=== PATIENT | male | born 1945 | race African-American/Black ===

== ENCOUNTER 2017-02-01 17:03 | Inpatient (IN) | payer MEDICARE ==
[~2017-02-01] VITALS: Ht 177.8 cm; Wt 131.8 kg
[~2017-02-01 17:03] MED LIST: ANTIVERT12.5 MG PO; CLARITIN 10 MG10 MG PO; COZAAR50 MG PO; DEPAKOTE500 MG PO; DESERYL100 MG PO; DULCOLAX5 MG PO; FEXOFENADINE H180 MG PO; FEXOFENADINE HC60 MG PO; GLUCOPHAGE500 MG PO; GUAIFENESI100 MG/5 M PO; HALDOL DECAN50 MG/ML IM; HYDROCHLOROTH12.5 M1 PO; HYZAAR 100-25 T1 TAB PO; INVEGA SUS117 MG/0.7 IM; INVEGA6 MG/BLIST PO; INVEGA9 MG/BLIST PO; LIDODERM 5 %1 PATCH TD; LINZESS145 MCG PO; MELATONIN 3 MG1 TAB PO; MILK OF MAGNESI30 ML OR; MILK OF MAGNESI30 ML PO; MIRALAX17 GM PO; MOBIC7.5 MG PO; MUCINEX600 MG PO; MYRBETRIQ25 MG PO; NORCO 5/325 TAB1 TA1 PO; NORVASC5 MG PO; PAXIL20 MG PO; REFRESH TEARS15 ML EACH EYE; REQUIP1 MG PO; RISPERDAL0.5 MG PO; RISPERDAL1 MG PO; SENNA PLUS TA1 UDTAB PO; SENOKOT-S TABLE1 TAB PO; TRIMETHOPRIM100 MG PO; TYLENOL W/CODEI1 TAB PO; VESICARE10 MG PO; VITAMIN D2000 UNIT PO
[2017-02-01] MEDS ORDERED: FUROSEMIDE20 MG PO (23:23)
[2017-02-01] MEDS ORDERED: CELEXA10 MG PO (23:24)
[2017-02-01] MEDS ORDERED: TRAZODONE HCL50 MG PO (23:24)
[2017-02-01] MEDS ORDERED: FLOMAX0.4 MG PO (23:25)
[2017-02-01] MEDS ORDERED: KLONOPIN0.5 MG PO (23:26)
[2017-02-01] MEDS ORDERED: LINZESS290 MCG (23:27)
[2017-02-02 15:13] VITALS: Ht 177.8 cm; Wt 131.8 kg
[2017-02-06] MEDS ORDERED: NYSTATIN ORAL SU5 ML PO (15:45)
[2017-02-06] MEDS ORDERED: ALBUTEROL2.5 MG/3 M INH (15:45)
[2017-02-06] MEDS ORDERED: CLEOCIN PREMIX900 MG IV (15:45)
[2017-02-06] MEDS ORDERED: NICODERM C1 PATCH .1 TRANSDERM (15:46)
[2017-02-06] MEDS ORDERED: IPRAT-ALBUT 0.5-3 ML INH (15:46)
[2017-02-06] MEDS ORDERED: TESSALON PERLE100 MG PO (15:47)
[2017-02-06] MEDS ORDERED: SINGULAIR10 MG PO (15:48)
[2017-02-06 16:38] VITALS: BP 113/83
== END 2017-02-06 21:55 | DRG 871 ==
LOC: D.ER 17:03 → D.MS 19:39
PROVIDERS: ADMIT Family Medicine Adult Medicine
PROC: 05HC33Z Insertion of Infusion Device into Left Basilic Vein, Percutaneous Approach (ICD-10-PCS; principal; 2017-02-06)
PROC: B54NZZA Ultrasonography of Left Upper Extremity Veins, Guidance (ICD-10-PCS; 2017-02-06)
DX: A41.9 Sepsis, unspecified organism (principal); J96.01 Acute respiratory failure with hypoxia; J18.9 Pneumonia, unspecified organism; J44.0 Chronic obstructive pulmonary disease with (acute) lower respiratory infection; J44.1 Chronic obstructive pulmonary disease with (acute) exacerbation; F17.203 Nicotine dependence unspecified, with withdrawal; E87.1 Hypo-osmolality and hyponatremia; J98.11 Atelectasis; I10 Essential (primary) hypertension; G25.81 Restless legs syndrome; N32.81 Overactive bladder; E83.42 Hypomagnesemia; E11.9 Type 2 diabetes mellitus without complications; Z79.84 Long term (current) use of oral hypoglycemic drugs; I11.0 Hypertensive heart disease with heart failure; I50.9 Heart failure, unspecified; F03.90 Unspecified dementia, unspecified severity, without behavioral disturbance, psychotic disturbance, mood disturbance, and anxiety; G47.33 Obstructive sleep apnea (adult) (pediatric); Z91.19 Patient's noncompliance with other medical treatment and regimen

== ENCOUNTER 2019-01-03 22:01 | Inpatient (IN) | payer MEDICARE ==
[~2019-01-03] VITALS: Ht 177.8 cm; Wt 135.2 kg
[~2019-01-03 22:01] MED LIST changes: +ALBUTEROL2.5 MG/3 M INH; +CELEXA10 MG PO; +CLEOCIN PREMIX900 MG IV; +FLOMAX0.4 MG PO; +FUROSEMIDE20 MG PO; +IPRAT-ALBUT 0.5-3 ML INH; +KLONOPIN0.5 MG PO; +LINZESS290 MCG; +NICODERM C1 PATCH .1 TRANSDERM; +NYSTATIN ORAL SU5 ML PO; +SINGULAIR10 MG PO; +TESSALON PERLE100 MG PO; +TRAZODONE HCL50 MG PO
--- NOTE | 2019-01-03 22:21 | NUR ---
URINE COLLECTED AND SENT TO LAB.
[2019-01-03 22:30] LABS: APPEARANCE HAZY (CLEAR); BILIRUBIN NEGATIVE (NEGATIVE); COLOR YELLOW (YELLOW); GLUCOSE NEGATIVE (NEGATIVE); KETONE NEGATIVE (NEGATIVE); NITRITE NEGATIVE (NEGATIVE); PROTEIN NEGATIVE (NEGATIVE); UROBILINOGEN NORMAL (NORMAL)
[2019-01-03 22:32] LABS: BACTERIA FEW /hpf (NONE SEEN); EPITHELIAL CELLS 0-5 /hpf (0-5); RED CELLS - URINE OCC /hpf (0-5); WHITE CELLS - URINE RARE /hpf (0-5)
[2019-01-03 22:32] LABS: BASOPHILS 0.3 % (0-2); EOSINOPHILS 5.6 % (0-7); HEMATOCRIT 40.6 % (42.0-54.0); HEMOGLOBIN 13.6 g/dL (13.5-17.5); IMMATURE GRANULOCYTES 0.3 % (0-5); LYMPHOCYTES 38.8 % (15-50); MCH 31.5 pg (26.0-34.0); MCHC 33.5 g/dL (31.0-37.0); MEAN PLATELET VOLUME 9.4 fL (7.4-10.4); PLATELET COUNT 153 10x3/uL (130-400); RBC 4.32 10x6/uL (4.20-6.10); RDW 13.7 % (11.5-14.5); WBC 7.7 10x3/uL (4.8-10.8)
[2019-01-03 22:44] LABS: APTT 33.2 SECONDS (22.8-39.4); INR 1.07 (0.85-1.17); PROTIME 13.4 SECONDS (11.6-15.0)
[2019-01-03 22:51] LABS: ALBUMIN 3.2 g/dL (3.4-5.0); ALKALINE PHOSPHATASE 66 U/L (46-116); ALT (SGPT) 31 U/L (10-68); BILIRUBIN - TOTAL 0.29 mg/dL (0.2-1.3); CALC OSMOLALITY 253 mosm/kg (275-300); CALCIUM 9.1 mg/dL (8.5-10.1); CHLORIDE - SERUM 89 mmol/L (98-107); CREATININE - SERUM 0.7 mg/dL (0.6-1.3); GLUCOSE 118 mg/dL (74-106); POTASSIUM - SERUM 4.4 mmol/L (3.5-5.1); PROTEIN - SERUM 7.2 g/dL (6.4-8.2); SODIUM 127 mmol/L (136-145); UREA NITROGEN 8 mg/dL (7-18); eGFR NON AFRICAN AMERICAN > 90 mL/min (90-120)
[2019-01-03 23:07] LABS: CREATINE KINASE 275 UL (21-232); LIPASE 174 U/L (73-393); MAGNESIUM - SERUM 2.2 mg/dL (1.8-2.4); PRO BNP 20 pg/mL (0-450); TROPONIN-I < 0.017 ng/mL (0.000-0.060)
[2019-01-03 23:08] LABS: CKMB 2.2 U/L (0.0-3.6)
--- NOTE | 2019-01-03 23:32 | NUR ---
RADIOLOGY AT BEDSIDE TO TAKE PT TO CT.
--- NOTE | 2019-01-04 00:50 | NUR ---
750ML NORMAL SALINE REMAINING IN BOLUS LEAVING ED.
--- NOTE | 2019-01-04 00:50 | NUR ---
PT BROUGHT TO FLOOR VIA BED BY ER STAFF. VSS, PT IS ON 4 L OF O2 WITH O2 SAT OF 90%. VSS, NO SIGNS OF DISTRESS. PT WAS ABLE TO TRANSFER TO FLOOR BED WITH ASSIST X2. NO C/O PAIN AT THIS TIME. CONT WITH POC.
--- NOTE | 2019-01-04 00:50 | NUR ---
PT TRANSPORTED TO ROOM 1208 AT THIS TIME WITH BELONGINGS AND OXYGEN.
[2019-01-04 01:55] VITALS: BP 133/77; BMI 43.9
[2019-01-04 02:50] LABS: BASOPHILS 0.3 % (0-2); EOSINOPHILS 5.7 % (0-7); HEMATOCRIT 40.8 % (42.0-54.0); HEMOGLOBIN 13.7 g/dL (13.5-17.5); IMMATURE GRANULOCYTES 0.2 % (0-5); LYMPHOCYTES 37.7 % (15-50); MCH 31.5 pg (26.0-34.0); MCHC 33.6 g/dL (31.0-37.0); MCV 93.8 fL (80.0-100.0); MEAN PLATELET VOLUME 9.5 fL (7.4-10.4); MONOCYTES 16.4 % (2-11); NEUTROPHILS 39.7 % (40-80); PLATELET COUNT 176 10x3/uL (130-400); RBC 4.35 10x6/uL (4.20-6.10); RDW 13.7 % (11.5-14.5); WBC 6.7 10x3/uL (4.8-10.8)
[2019-01-04 02:56] LABS: CALC OSMOLALITY 259 mosm/kg (275-300); CARBON DIOXIDE 35.8 mmol/L (21.0-32.0); CHLORIDE - SERUM 92 mmol/L (98-107); CREATININE - SERUM 0.6 mg/dL (0.6-1.3); GLUCOSE 119 mg/dL (74-106); POTASSIUM - SERUM 3.8 mmol/L (3.5-5.1); SODIUM 130 mmol/L (136-145); UREA NITROGEN 8 mg/dL (7-18); eGFR NON AFRICAN AMERICAN > 90 mL/min (90-120)
[2019-01-04 03:31] VITALS: BP 136/75
--- NOTE | 2019-01-04 04:25 | NUR ---
PT C/O CHEST PAIN AND PAIN IN HIS L LEG. EKG PERFORMED SHOWING SR WITH 1ST DEGREE AV BLOCK. UNABLE TO PALP PEDAL PULSE IN L LEG. DOPPLER OBTAINED AND DIMINISHED PULSE MARKED. JIA MANTILLA PAGED. TELE OBTAINED AND PLACED ON PT.
--- NOTE | 2019-01-04 07:45 | NUR ---
PT RESTING IN BED. PT ASSISTED TO SITTING POSITION IN BED AND IS NOW EATING BREAKFAST. PT DENIES NEEDS. WCTM.
[2019-01-04 08:51] VITALS: BP 106/62
[2019-01-04 09:25] VITALS: Ht 177.8 cm; Wt 135.2 kg
[2019-01-04 12:01] VITALS: BP 141/75
--- NOTE | 2019-01-04 12:16 | MORECARE ---
CASE MANAGEMENT DISCHARGE SUMMARY PATIENT: CHADD RALPH UNIT: [id number] ADM DATE: 01/03/19 AGE: 73 : 43 SEX: M ROOM/BED: D.1208 AUTHOR: KENNEDY KOEHLER PHYSICIAN: REFERRING PHYSICIAN: ADWOA DURAND MD DATE OF SERVICE: 01/04/19 Discharge Plan Patient Name: CHADD RALPH Facility: [facility]:[place] : 1945 Planned Disposition: Alf Facility Anticipated Discharge Date: Discharge Date: Expected LOS: Initial Reviewer: [email or web address] Initial Review Date: 01/04/2019 Generated: 01/04/19 1:15 pm Patient Name: CHADD RALPH Page [phone] at 1216 All edits/amendments must be made on the electronic document DICTATION DATE: 01/04/19 1215 ENTER[employer]ISE SYSTEMS ARCHITECT: PENNIE 01/04/19 1215 RPT#: [id number] DC DATE: STATUS: ADM IN [facility] [address] [place] [address] END OF REPORT
--- NOTE | 2019-01-04 12:22 | MORECARE ---
CASE MANAGEMENT DISCHARGE SUMMARY PATIENT: CHADD RALPH UNIT: [id number] ADM DATE: 01/03/19 AGE: 73 : 43 SEX: M ROOM/BED: D.1208 AUTHOR: KENNEDY KOEHLER PHYSICIAN: REFERRING PHYSICIAN: ADWOA DURAND MD DATE OF SERVICE: 01/04/19 Discharge Plan Patient Name: CHADD RALPH [facility] [facility] 1945 Planned Disposition: Alf Facility Anticipated Discharge Date: Discharge Date: Expected LOS: Initial Reviewer: [email or web address] Initial Review Date: 01/04/2019 Generated: 01/04/19 1:22 pm Comments DCP- Discharge Planning Updated by [email or web address]: Winsome Dempsey on 01/04/19 11:[address] THIS PATIENT WAS ADMITTED FROM [facility]. PER HIS SUMMARY HE WAS ADMITTED 02/06/17. CM WILL F/U TO CONFIRM HIS DISCHARGE PLAN. Last DP export: 01/04/19 11:16 a Patient Name: CHADD RALPH Page [phone] at 1222 All edits/amendments must be made on the electronic document DICTATION DATE: 01/04/19 122 TUBE DRAWER: PENNIE 01/04/19 1222 RPT#: [id number] DC DATE: STATUS: ADM IN [facility] [address] [place] [address] END OF REPORT
[2019-01-04 17:09] VITALS: BP 137/71
--- NOTE | 2019-01-04 18:44 | MORECARE ---
CASE MANAGEMENT DISCHARGE SUMMARY PATIENT: CHADD RALPH UNIT: [id number] ADM DATE: 01/03/19 AGE: 73 : 43 SEX: M ROOM/BED: D.1208 AUTHOR: KENNEDY KOEHLER PHYSICIAN: REFERRING PHYSICIAN: ADWOA DURAND MD DATE OF SERVICE: 01/04/19 Discharge Plan Patient Name: CHADD RALPH [facility] [facility] 1945 Planned Disposition: Snf Facility Anticipated Discharge Date: 01/04/19 Discharge Date: Expected LOS: 1 Initial Reviewer: [email or web address] Initial Review Date: 01/04/2019 Generated: 01/04/19 7:43 pm DCP- Discharge Planning Updated by [email or web address]: Winsome Dempsey on 01/04/19 11:[address] THIS PATIENT WAS ADMITTED FROM [facility]. PER HIS SUMMARY HE WAS ADMITTED 02/06/17. CM WILL F/U TO CONFIRM HIS DISCHARGE PLAN. Last DP export: 01/04/19 11:22 a Patient Name: CHADD RALPH Page [phone] at 1844 All edits/amendments must be made on the electronic document DICTATION DATE: 01/04/191842 LINE TENDER FLAKEBOARD: PENNIE 01/04/191842 RPT#: [id number] DC DATE: STATUS: ADM IN [facility] [address] [place] [address] END OF REPORT
--- NOTE | 2019-01-04 19:11 | MORECARE ---
CASE MANAGEMENT DISCHARGE SUMMARY PATIENT: CHADD RALPH UNIT: [id number] ADM DATE: 01/03/19 AGE: 73 : 43 SEX: M ROOM/BED: D.1208 AUTHOR: RODO,DOC PHYSICIAN: REFERRING PHYSICIAN: ADWOA DURAND MD DATE OF SERVICE: 01/04/19 Discharge Plan Patient Name: CHADD RALPH Facility: [facility]:[place] : 1945 Planned Disposition: Long-Term Facility Anticipated Discharge Date: 01/04/19 Discharge Date: Expected LOS: 1 Initial Reviewer: [email or web address] Initial Review Date: 01/04/2019 Generated: 01/04/19 8:10 pm Comments DCP- Discharge Planning Updated by [email or web address]: Winsome Dempsey on 01/04/19 6:[address] LATE ENTRY 1600 CM MET WITH THE PATIENT AT THE BEDSIDE. HIS PLAN IS TO RETURN TO [facility]. HE IS IN A HALF-WAY BED. CM WENT TO THE DESK. PRIMARY NURSE ADVISED THE PATIENT HAD DISCHARGE ORDERS FOR TODAY. CHART REVIEWED. TC TO STRIP MINE SUPERVISORSHELBI. THE PATIENT WAS ON NASAL O2 AT 1.5 LITERS AT FACILITY. HE IS REQUIRING 4/L VIA NASAL CANNULA. ADVISED HIM OF CXR AND CAT OF CHEST REPORT W/ ATELECTASIS BILATERALLY. THE PRIMARY REPORTED HIS BREATH SOUNDS WERE "NOISY". SHELBI STATES THE FACILITY HAS CALLED TO SAY THEY WILL MANAGE HIS HYPONATREMIA. NO REFERENCE TO RESP STATUS. CM TELEPHONED THE FACILITY. SPOKE WITH THE NURSE. SHE STATED SHE WOULD REPORT TO THE DON. CM FAXED LABS AND XRAY REPORTS ALONG WITH RESP NOTES. THE DON STATED TO SEND THE PATIENT DR VARGAS WILL BE ROUNDING AT THE FACILITY IN THE AM. HE WILL ASSESS THE PATIENT. CM ADVISED THE PRIMARY NURSE. TC REGARDING TRANSPORTATION. FACILITY STATED TO SEND BY AMBULANCE. NURSE CALLED REPORT. PCS FORM COMPLETED. [facility] CALLED. PLAN FOR TRANSPORT IN 45 MINUTES. CM ADVISED HE IS S/P RECENT CVA BY CHART NOTES, HE IS 300 PLUS POUNDS AND HE REQUIRES 4 L OF NASAL OXYGEN. FORMS GIVEN TO PRIMARY. ADVISED OF TIME FRAME. THE PATIENT IS BEING ADMITTED TO A HALF-WAY BED. DCP- Discharge Planning Updated by [id number]: Winsome Dempsey on 01/04/19 11:[address] THIS PATIENT WAS ADMITTED FROM [facility]. PER HIS SUMMARY HE WAS ADMITTED 02/06/17. CM WILL F/U TO CONFIRM HIS DISCHARGE PLAN. Last DP export: 01/04/19 5:44 p Patient Name: CHADD RALPH Page [phone] at 1911 All edits/amendments must be made on the electronic document DICTATION DATE: 01/04/191909 ADJUNCT COMMUNICATIONS FACULTY MEMBER: PENNIE 01/04/191909 RPT#: [id number] DC DATE: STATUS: ADM IN [facility] [address] [place] [address] END OF REPORT
--- NOTE | 2019-01-04 19:22 | NUR ---
COLETTE SPOKE WITH SHELBI AND PT IS TO STAY THE NIGHT AND DRAW CBC AND BMP IN THE AM.
--- NOTE | 2019-01-04 19:24 | MORECARE ---
CASE MANAGEMENT DISCHARGE SUMMARY PATIENT: CHADD RALPH UNIT: [id number] ADM DATE: 01/03/19 AGE: 73 : 43 SEX: M ROOM/BED: D.1208 AUTHOR: ROODDOC PHYSICIAN: REFERRING PHYSICIAN: ADWOA DURAND MD DATE OF SERVICE: 01/04/19 Discharge Plan Patient Name: CHADD RALPH Facility: [facility]:[place] : 1945 Planned Disposition: Custodial Facility Anticipated Discharge Date: 01/04/19 Discharge Date: Expected LOS: 1 Initial Reviewer: [email or web address] Initial Review Date: 01/04/2019 Generated: 01/04/19 8:24 pm Comments DCP- Discharge Planning Updated by [email or web address]: Winsome Dempsey on 01/04/19 6:[address] DURAND VISITED THIS PM 1914. HE TOLD THE PATIENT HE IS NOT DISCHARGED TONIGHT. PRIMARY NURSE CALLED DR VARGAS'S OFFICE. JIA MARIO ANSWERED. THE PATIENT IS STAYING OVERNIGHT. DRAW CBC AND BMP IN THE AM. TC TO [facility] TO ADVISE. SHANDA SPOKE W/ KANDACE' TC TO [facility] BY PRIMARY NURSE. DR DURAND HAD CALLED THEM. DCP- Discharge Planning Updated by [id number]: Winsome Dempsey on 01/04/19 6:[address] LATE ENTRY 1600 CM MET WITH THE PATIENT AT THE BEDSIDE. HIS PLAN IS TO RETURN TO [facility]. HE IS IN A PINMAKER BED. CM WENT TO THE DESK. PRIMARY NURSE ADVISED THE PATIENT HAD DISCHARGE ORDERS FOR TODAY. CHART REVIEWED. TC TO SHELBI RO. THE PATIENT WAS ON NASAL O2 AT 1.5 LITERS AT FACILITY. HE IS REQUIRING 4/L VIA NASAL CANNULA. ADVISED HIM OF CXR AND CAT OF CHEST REPORT W/ ATELECTASIS BILATERALLY. THE PRIMARY REPORTED HIS BREATH SOUNDS WERE "NOISY". SHELBI STATES THE FACILITY HAS CALLED TO SAY THEY WILL MANAGE HIS HYPONATREMIA. NO REFERENCE TO RESP STATUS. SHANDA TELEPHONED THE FACILITY. SPOKE WITH THE NURSE. SHE STATED SHE WOULD REPORT TO THE DON. CM FAXED LABS AND XRAY REPORTS ALONG WITH RESP NOTES. THE DON STATED TO SEND THE PATIENT DR VARGAS WILL BE ROUNDING AT THE FACILITY IN THE AM. HE WILL ASSESS THE PATIENT. CM ADVISED THE PRIMARY NURSE. TC REGARDING TRANSPORTATION. FACILITY STATED TO SEND BY AMBULANCE. NURSE CALLED REPORT. PCS FORM COMPLETED. [facility] CALLED. PLAN FOR TRANSPORT IN 45 MINUTES. CM ADVISED HE IS S/P RECENT CVA BY CHART NOTES, HE IS 300 PLUS POUNDS AND HE REQUIRES 4 L OF NASAL OXYGEN. FORMS GIVEN TO PRIMARY. ADVISED OF TIME FRAME. THE PATIENT IS BEING ADMITTED TO A PINMAKER BED. DCP- Discharge Planning Updated by [email or web address]: Winsome Dempsey on 01/04/19 11:[address] THIS PATIENT WAS ADMITTED FROM [facility]. PER HIS SUMMARY HE WAS ADMITTED 02/06/17. CM WILL F/U TO CONFIRM HIS DISCHARGE PLAN. Last DP export: 01/04/19 6:11 p Patient Name: CHADD RALPH Page 90115 at 1924 All edits/amendments must be made on the electronic document DICTATION DATE: 01/04/191923 SENIOR SOFTWARE MANAGER: PENNIE 01/04/191923 RPT#: [id number] DC DATE: STATUS: ADM IN [facility] [address] [place] [address] END OF REPORT
[2019-01-04 20:00] VITALS: BP 156/87
[2019-01-05] VITALS: BP 134/98
[2019-01-05 04:00] VITALS: BP 144/55
--- NOTE | 2019-01-05 07:17 | NUR ---
REPORT RECEIVED FROM EMAIL ADMINISTRATOR AND PATIENT CARE RECEIVED. PATIENT LAYING IN BED ON BACK WITH EYES CLOSED AND BREATHING EVENLY. WILL CONTINUE WITH PLAN OF CARE. SR UP X 2 BED IN LOW POSITION AND CALL LIGHT IN REACH.
[2019-01-05 07:34] LABS: BASOPHILS 0.1 % (0-2); EOSINOPHILS 4.5 % (0-7); HEMATOCRIT 42.2 % (42.0-54.0); HEMOGLOBIN 13.8 g/dL (13.5-17.5); IMMATURE GRANULOCYTES 0.1 % (0-5); LYMPHOCYTES 29.6 % (15-50); MCH 31.3 pg (26.0-34.0); MCHC 32.7 g/dL (31.0-37.0); MCV 95.7 fL (80.0-100.0); MEAN PLATELET VOLUME 9.6 fL (7.4-10.4); MONOCYTES 15.3 % (2-11); NEUTROPHILS 50.4 % (40-80); PLATELET COUNT 200 10x3/uL (130-400); RBC 4.41 10x6/uL (4.20-6.10); RDW 14.1 % (11.5-14.5); WBC 7.2 10x3/uL (4.8-10.8)
[2019-01-05 07:44] LABS: CALC OSMOLALITY 272 mosm/kg (275-300); CALCIUM 9.5 mg/dL (8.5-10.1); CARBON DIOXIDE 34.4 mmol/L (21.0-32.0); CHLORIDE - SERUM 97 mmol/L (98-107); CREATININE - SERUM 0.6 mg/dL (0.6-1.3); GLUCOSE 104 mg/dL (74-106); SODIUM 137 mmol/L (136-145); UREA NITROGEN 10 mg/dL (7-18); eGFR NON AFRICAN AMERICAN > 90 mL/min (90-120)
[2019-01-05 08:00] VITALS: BP 142/88
[2019-01-05] MEDS ORDERED: FUROSEMIDE20 MG PO (09:17)
--- NOTE | 2019-01-05 10:30 | NUR ---
PATIENT ON BEDPAN. DID NOT HAVE BM . DID URINATE CLEAR YELLOW URINE. PATIENT IS STABLE AND VSS. PATIENT DENIES ANY NEEDS OR PAIN. WILL CONTINUE TO MONITOR. SR UPX 2 BED IN LOW POSITION AND CALL LIGHT IN REACH.
--- NOTE | 2019-01-05 10:56 | MORECARE ---
CASE MANAGEMENT DISCHARGE SUMMARY PATIENT: CHADD RALPH UNIT: [id number] ADM DATE: 01/03/19 AGE: 73 : 43 SEX: M ROOM/BED: D.1208 AUTHOR: RODO,DOC PHYSICIAN: REFERRING PHYSICIAN: ADWOA DURAND MD DATE OF SERVICE: 01/05/19 Discharge Plan Patient Name: CHADD RALPH Facility: [facility]:[place] : 1945 Planned Disposition: Care Home Facility Anticipated Discharge Date: 01/04/19 Discharge Date: Expected LOS: 1 Initial Reviewer: [email or web address] Initial Review Date: 01/04/2019 Generated: 01/05/19 11:56 am Comments DCP- Discharge Planning Updated by [email or web address]: Winsome Dempsey on 01/05/19 9:[address] LATE ENTRY 0830 DR DURAND AND SHELBI ROUNDED THIS AM. PATIENT HAS BEEN CLEARED FOR DISCHARGE BACK TO [facility]. TELEPHONED [facility] TO [facility] OF DISCHARGE AT 093/ 9197/ 1058. CM SPOKE W/ LORN AT 1030. PRIMARY NURSE GAVE REPORT. DISCHARGE PACKET UPDATED. CM FAXED 01/05 PROGRESS NOTE AND 01/05 LAB TO [phone]. PATIENT WILL BE DISCHARGED BY AMBULANCE. DCP- Discharge Planning Updated by [id number]: Winsome Dempsey on 01/04/19 6:[address] DURAND VISITED THIS PM 191. HE TOLD THE PATIENT HE IS NOT DISCHARGED TONIGHT. PRIMARY NURSE CALLED DR VARGAS'S OFFICE. JIA MARIO ANSWERED. THE PATIENT IS STAYING OVERNIGHT. DRAW CBC AND BMP IN THE AM. TC TO [facility] TO ADVISE. CM SPOKE W/ KANDACE' TC TO [facility] BY PRIMARY NURSE. DR DURAND HAD CALLED THEM. DCP- Discharge Planning Updated by [id number]: Winsome Dempsey on 01/04/19 6:[address] LATE ENTRY 1600 CM MET WITH THE PATIENT AT THE BEDSIDE. HIS PLAN IS TO RETURN TO [facility]. HE IS IN A STORE PROTECTION SPECIALIST BED. CM WENT TO THE DESK. PRIMARY NURSE ADVISED THE PATIENT HAD DISCHARGE ORDERS FOR TODAY. CHART REVIEWED. TC TO EMPLOYEE RELATIONS MANAGERSHELBI. THE PATIENT WAS ON NASAL O2 AT 1.5 LITERS AT FACILITY. HE IS REQUIRING 4/L VIA NASAL CANNULA. ADVISED HIM OF CXR AND CAT OF CHEST REPORT W/ ATELECTASIS BILATERALLY. THE PRIMARY REPORTED HIS BREATH SOUNDS WERE "NOISY". SHELBI STATES THE FACILITY HAS CALLED TO SAY THEY WILL MANAGE HIS HYPONATREMIA. NO REFERENCE TO RESP STATUS. CM TELEPHONED THE FACILITY. SPOKE WITH THE NURSE. SHE STATED SHE WOULD REPORT TO THE DON. CM FAXED LABS AND XRAY REPORTS ALONG WITH RESP NOTES. THE DON STATED TO SEND THE PATIENT DR VARGAS WILL BE ROUNDING AT THE FACILITY IN THE AM. HE WILL ASSESS THE PATIENT. CM ADVISED THE PRIMARY NURSE. TC REGARDING TRANSPORTATION. FACILITY STATED TO SEND BY AMBULANCE. NURSE CALLED REPORT. PCS FORM COMPLETED. [facility] CALLED. PLAN FOR TRANSPORT IN 45 MINUTES. CM ADVISED HE IS S/P RECENT CVA BY CHART NOTES, HE IS 300 PLUS POUNDS AND HE REQUIRES 4 L OF NASAL OXYGEN. FORMS GIVEN TO PRIMARY. ADVISED OF TIME FRAME. THE PATIENT IS BEING ADMITTED TO A STORE PROTECTION SPECIALIST BED. DCP- Discharge Planning Updated by [email or web address]: Winsome Dempsey on 01/04/19 11:[address] THIS PATIENT WAS ADMITTED FROM [facility]. PER HIS SUMMARY HE WAS ADMITTED 02/06/17. CM WILL F/U TO CONFIRM HIS DISCHARGE PLAN. Last DP export: 01/04/19 6:24 p Patient Name: CHADD RALPH Page [phone] at 1056 All edits/amendments must be made on the electronic document DICTATION DATE: 01/05/19 1056 TEST EQUIPMENT MECHANIC: PENNIE 01/05/19 1056 RPT#: [id number] DC DATE: STATUS: ADM IN [facility] [address] [place] [address] END OF REPORT
--- NOTE | 2019-01-05 11:15 | NUR ---
ORDERS RECEIVED FOR DISCHARGE. PATIENT IS STABLE AND VSS. GAVE VERBAL AND WRITTEN DISCHARGE INSTRUCTIONS. PATIENT UNABLE TO SIGN DISCHARGE PAPERS. SENT COMPLETE PACKET OF DISCHARGE INSTRUCTIONS AND INFORMATION. CALLED REPORT TO JUAN DAVID MURRAY AT [facility]. CALLED [facility] FOR TRANSPORT.
[2019-01-05 11:38] VITALS: BP 139/77
--- NOTE | 2019-01-05 12:00 | NUR ---
PATIENT IS STABLE AND VSS. PATIENT DENIES ANY NNEDS OR PAIN. AMBULANCE HERE TO TRANSPORT PATIENT TO [place]. PATIENT LEFT UNIT VIA [facility] [employer] AND [employer] PERSONNEL.
--- NOTE | 2019-01-07 08:57 | MORECARE ---
CASE MANAGEMENT DISCHARGE SUMMARY PATIENT: CHADD RALPH UNIT: [id number] ADM DATE: 01/03/19 AGE: 73 : 43 SEX: M ROOM/BED: D.1208 AUTHOR: RODO,DOC PHYSICIAN: REFERRING PHYSICIAN: ADWOA DURAND MD DATE OF SERVICE: 01/07/19 Discharge Plan Patient Name: CHADD RALPH Facility: [facility]:[place] : 1945 Planned Disposition: Usp Facility Anticipated Discharge Date: 01/04/19 Discharge Date: 01/05/2019 Expected LOS: 1 Initial Reviewer: [email or web address] Initial Review Date: 01/04/2019 Generated: 01/07/19 9:57 am Comments DCP- Discharge Planning Updated by [id number]: Winsome Dempsey on 01/05/19 9:[address] LATE ENTRY 0830 DR DURAND AND SHELBI ROUNDED THIS AM. PATIENT HAS BEEN CLEARED FOR DISCHARGE BACK TO [facility]. TELEPHONED [facility] TO [facility] OF DISCHARGE AT 099/ 5911/ 4433. CM SPOKE W/ LORN AT 1030. PRIMARY NURSE GAVE REPORT. DISCHARGE PACKET UPDATED. CM FAXED 01/05 PROGRESS NOTE AND 01/05 LAB TO [phone]. PATIENT WILL BE DISCHARGED BY AMBULANCE. DCP- Discharge Planning Updated by [id number]: Winsome Dempsey on 01/04/19 6:[address] DURAND VISITED THIS PM 191. HE TOLD THE PATIENT HE IS NOT DISCHARGED TONIGHT. PRIMARY NURSE CALLED DR VARGAS'S OFFICE. JIA MARIO ANSWERED. THE PATIENT IS STAYING OVERNIGHT. DRAW CBC AND BMP IN THE AM. TC TO [facility] TO [facility]. CM SPOKE W/ KANDACE' TC TO [facility] BY PRIMARY NURSE. DR DURAND HAD CALLED THEM. DCP- Discharge Planning Updated by [email or web address]: Winsome Dempsey on 01/04/19 6:[address] LATE ENTRY 1600 CM MET WITH THE PATIENT AT THE BEDSIDE. HIS PLAN IS TO RETURN TO [facility]. HE IS IN A LONG-TERM BED. CM WENT TO THE DESK. PRIMARY NURSE ADVISED THE PATIENT HAD DISCHARGE ORDERS FOR TODAY. CHART REVIEWED. TC TO COMMODITY LEAD, SHELBI SOOD. THE PATIENT WAS ON NASAL O2 AT 1.5 LITERS AT FACILITY. HE IS REQUIRING 4/L VIA NASAL CANNULA. ADVISED HIM OF CXR AND CAT OF CHEST REPORT W/ ATELECTASIS BILATERALLY. THE PRIMARY REPORTED HIS BREATH SOUNDS WERE "NOISY". SHELBI STATES THE FACILITY HAS CALLED TO SAY THEY WILL MANAGE HIS HYPONATREMIA. NO REFERENCE TO RESP STATUS. CM TELEPHONED THE FACILITY. SPOKE WITH THE NURSE. SHE STATED SHE WOULD REPORT TO THE DON. CM FAXED LABS AND XRAY REPORTS ALONG WITH RESP NOTES. THE DON STATED TO SEND THE PATIENT DR VARGAS WILL BE ROUNDING AT THE FACILITY IN THE AM. HE WILL ASSESS THE PATIENT. CM ADVISED THE PRIMARY NURSE. TC REGARDING TRANSPORTATION. FACILITY STATED TO SEND BY AMBULANCE. NURSE CALLED REPORT. PCS FORM COMPLETED. [facility] CALLED. PLAN FOR TRANSPORT IN 45 MINUTES. CM ADVISED HE IS S/P RECENT CVA BY CHART NOTES, HE IS 300 PLUS POUNDS AND HE REQUIRES 4 L OF NASAL OXYGEN. FORMS GIVEN TO PRIMARY. ADVISED OF TIME FRAME. THE PATIENT IS BEING ADMITTED TO A LONG-TERM BED. DCP- Discharge Planning Updated by [id number]: Winsome Dempsey on 01/04/19 11:[address] THIS PATIENT WAS ADMITTED FROM [facility]. PER HIS SUMMARY HE WAS ADMITTED 02/06/17. CM WILL F/U TO CONFIRM HIS DISCHARGE PLAN. Last DP export: 01/05/19 9:56 a Patient Name: CHADD RALPH Page [phone] at 0857 All edits/amendments must be made on the electronic document DICTATION DATE: 01/07/19856 CORD SPLICER: PENNIE 01/07/1959 RPT#: [id number] DC DATE:01/05/19 STATUS: DIS IN [facility] [address] [place] [address] END OF REPORT
== END 2019-01-05 12:00 | DRG 641 ==
LOC: D.ER 22:01 → D.M3 22:50
PROVIDERS: Family Medicine; ADMIT Legal Medicine; ATTEND Legal Medicine
DX: E87.1 Hypo-osmolality and hyponatremia (principal); E83.42 Hypomagnesemia; F31.9 Bipolar disorder, unspecified; I50.9 Heart failure, unspecified; E11.9 Type 2 diabetes mellitus without complications; J44.9 Chronic obstructive pulmonary disease, unspecified; Z86.73 Personal history of transient ischemic attack (TIA), and cerebral infarction without residual deficits